=== PATIENT | male | born 1965 | race Caucasian/White ===

== ENCOUNTER 2020-05-31 15:03 | Inpatient (IN) ==
[2020-05-31] MEDS ORDERED: SODIUM CHLORIDE 0.9% 1,000 ML IV STA ×2 (15:29→15:50)
[2020-05-31] MEDS ORDERED: ROCURONIUM 100 MG/10 ML VIAL IV STA (15:36)
[2020-05-31] MEDS ORDERED: ETOMIDATE 20 MG/10 ML VIAL IV ONE (15:36)
[2020-05-31] MEDS ORDERED: ROCURONIUM 100 MG/10 ML VIAL IV ONE (15:41)
[2020-05-31] MEDS ORDERED: PIPERACILLIN/TAZOBACTAM 3,375 MG in SODIUM CHLORIDE 0.9% 100 ML IV STA (15:49)
[2020-05-31] MEDS ORDERED: DEXAMETHASONE 4 MG/1 ML VIAL IV STA (15:50)
[2020-05-31 15:57] LABS: Barbiturates Screen,Urine Negative (Negative); Benzodiazepines Screen,Urine Positive (Negative); Cannabinoid Screen,Urine Negative (Negative); Opiate Screen,Urine Negative (Negative); Phencyclidine Screen,Urine Negative (Negative)
[2020-05-31 16:07] LABS: Basophils # 0.1 10*3/uL (0.0-0.2); Basophils % 0.4 % (0.0-0.8); Eosinophils % 0.1 % (0.00-10.9); Hematocrit 29.5 VOL% (42.0-52.0); Hemoglobin 9.3 GM/DL (14.0-18.0); Immature Granulocytes % 2.9 %; Immature Granulocytes Absolute 0.72 #; Lymphocytes # 2.2 10*3/uL (1.4-4.0); Lymphocytes % 8.9 % (21.2-54.2); Mean Corpuscular HGB Conc 31.5 GM/DL (32-36); Mean Corpuscular Volume 81.9 FL (87-102); Mean Platelet Volume 9.9 FL (9.6-12.0); Monocytes % 6.1 % (1.7-12.7); Neutrophils % 81.6 % (38.7-73.9); Platelet Count 97 T/CUMM (130-400); Red Cell Distribution Width 20.9 % (9.3-17.3); White Blood Count 24.9 T/CUMM (4-12)
[2020-05-31 16:23] LABS: INR 3.9
[2020-05-31 16:23] LABS: ABG HCO3 14.2 MMOL/L (20-26); ABG Oxygen Saturation 99.8 % (95-100); ABG PCO2 34.3 MM HG (35-48); ABG PH 7.216 (7.35-7.45); ABG TCO2 13.1 MMOL/L (23-27)
[2020-05-31 16:24] LABS: PT Patient Result 38.7 SECS (9.8-11.9); Partial Thromboplastin Time 52.2 SECS (23.9-33.8)
[2020-05-31 16:28] LABS: Acetaminophen < 2.0 UG/ML (10-30); Salicylate < 2.8 MG/DL (2.8-20)
[2020-05-31 16:30] LABS: Alanine Aminotransferase 42 U/L (16-61); Albumin 1.1 G/DL (3.4-5.0); Alkaline Phosphatase 135 U/L (45-117); Aspartate Amino Transferase 207 U/L (0-37); Blood Urea Nitrogen 89 MG/DL (7-18); Calcium 7.6 MG/DL (8.5-10.1); Estimated Glom Filtration Rate 26 ML/MIN; Glucose 143 MG/DL (74-106); Osmolality,Calculated 296.2 MOS/KG (273-304); Thyroid Stimulating Hormone 0.195 uIU/ml (0.358-3.74); Total Protein 5.1 G/DL (6.4-8.3)
[2020-05-31] MEDS ORDERED: NOREPINEPHRINE 4 MG/4 ML VIAL IV ONE (16:34)
[2020-05-31] MEDS: NOREPINEPHRINE 8 MG in SODIUM CHLORIDE 0.9% 242 ML IV PRN (16:42)
[2020-05-31 17:19] LABS: Bacteria,Urine Moderate /HPF (Few); Bilirubin,Urine Negative (Negative); Blood, Urine Large mg/dL (Negative); Glucose,Urine (UA) 150 mg/dL (Negative); Ketones,Urine Negative (Negative); Nitrite,Urine Negative (Negative); Protein,Urine 30 MG/DL; RBC,Urine 8 /HPF (0-4); Squamous Epithelial Cell,Urine Occasional /HPF (0-10); Urine Appearance CLOUDY (Clear); Urine Color Amber (Yellow); Urine Specific Gravity 1.013 (1.001-1.035); WBC,Urine 46 /HPF (0-6)
[2020-05-31] MEDS ORDERED: ENOXAPARIN 30 MG/0.3 ML SYRINGE SUBCUT STA (17:49)
[2020-05-31] MEDS ORDERED: ENOXAPARIN 80 MG/0.8 ML SYRINGE SUBCUT ONE (17:55)
[2020-05-31 18:07] LABS: Band Neutrophils 10 % (0-10); Lymphocytes 4 % (20-55); Metamyelocytes 1 %; Nucleated Red Blood Cells 1 (0-5); Platelet Estimate Decreased; Segmented Neutrophils 82 % (50-85); Total Cells Counted 100
[2020-05-31 18:08] LABS: Toxic Granulation 1+
[2020-05-31] MEDS ORDERED: DIGOXIN 0.5 MG/2 ML AMP IV ONE ×2 (22:20→23:20)
[2020-05-31] MEDS ORDERED: ALBUTEROL 2.5 MG/3 ML NEB RESP TX PRN (22:23)
[2020-05-31] MEDS ORDERED: MIDAZOLAM 100 MG in SODIUM CHLORIDE 0.9% 80 ML IV PRN (22:23)
[2020-05-31] MEDS ORDERED: ONDANSETRON 4 MG/2 ML VIAL IV PRN (22:23)
[2020-05-31] MEDS ORDERED: MORPHINE 4 MG/1 ML VIAL IV PRN (22:23)
[2020-05-31] MEDS ORDERED: PANTOPRAZOLE 40 MG VIAL IV SCH (22:30)
[2020-05-31] MEDS ORDERED: cefTAZidime 1,000 MG in SYRINGE 1 EACH IV SCH (23:45)
[2020-06-01] MEDS: NOREPINEPHRINE 8 MG in SODIUM CHLORIDE 0.9% 242 ML IV PRN ×3 (01:51→11:05)
[2020-06-01] MEDS ORDERED: AMIODARONE INJ 150 MG in DEXTROSE 5% 100 ML IV ONE (01:53)
[2020-06-01] MEDS ORDERED: AMIODARONE INJ 450 MG in DEXTROSE 5% 241 ML IV SCH ×2 (02:00→08:00)
[2020-06-01 03:25] LABS: ABG Base Excess -14.2 MMOL/L (-2.5-2.5); ABG HCO3 13.5 MMOL/L (20-26); ABG PCO2 28.9 MM HG (35-48); ABG PH 7.234 (7.35-7.45); ABG TCO2 11.4 MMOL/L (23-27)
[2020-06-01 03:52] LABS: Hematocrit 31.8 VOL% (42.0-52.0); Hemoglobin 9.6 GM/DL (14.0-18.0); Immature Granulocytes % 3.6 %; Immature Granulocytes Absolute 1.51 #; Lymphocytes # 2.4 10*3/uL (1.4-4.0); Lymphocytes % 5.6 % (21.2-54.2); Mean Corpuscular HGB Conc 30.2 GM/DL (32-36); Mean Corpuscular Volume 84.8 FL (87-102); Mean Platelet Volume 10.5 FL (9.6-12.0); Monocytes % 4.5 % (1.7-12.7); NRBC # 0.55 10*3/uL; Neutrophils % 86.3 % (38.7-73.9); Red Blood Count 3.75 MC/CUMM (3.8-5.5); Red Cell Distribution Width 21.2 % (9.3-17.3)
[2020-06-01 04:02] LABS: Platelet Count 122 T/CUMM (130-400)
[2020-06-01 04:04] LABS: White Blood Count 42.2 T/CUMM (4-12)
[2020-06-01 04:11] LABS: Band Neutrophils 4 % (0-10); Hypochromasia Slight; Lymphocytes 7 % (20-55); Nucleated Red Blood Cells 1 (0-5); Platelet Estimate Adequate; Segmented Neutrophils 87 % (50-85); Total Cells Counted 100
[2020-06-01 04:12] LABS: Albumin 1.1 G/DL (3.4-5.0); Calcium 7.3 MG/DL (8.5-10.1); Macrocytosis Slight; Osmolality,Calculated 291.2 MOS/KG (273-304); Polychromasia Slight; Total Protein 5.7 G/DL (6.4-8.3)
[2020-06-01] MEDS: DEXTROSE 50% 25 GM/50 ML VIAL IV PRN ×5 (04:26→13:05)
[2020-06-01] MEDS ORDERED: PHENYLEPHRINE INJ 160 MG in SODIUM CHLORIDE 0.9% 234 ML IV PRN (07:20)
[2020-06-01] MEDS ORDERED: SODIUM BICARBONATE 50 MEQ/50 ML VIAL IV ONE (07:30)
[2020-06-01] MEDS ORDERED: SODIUM CHLORIDE 0.9% 1,000 ML IV ONE (07:30)
[2020-06-01] MEDS: HYDROCORTISONE 100 MG VIAL IV SCH ×2 (07:35→14:00)
[2020-06-01] MEDS ORDERED: VANCOMYCIN INJ 1,250 MG in SODIUM CHLORIDE 0.9% 250 ML IV ONE (08:30)
[2020-06-01] MEDS ORDERED: SODIUM BICARB INJ 150 MEQ in DEXTROSE 5% 850 ML IV SCH (08:30)
[2020-06-01] MEDS ORDERED: ATROPINE 1 MG/10 ML SYRINGE ONE (09:55)
[2020-06-01] MEDS ORDERED: ATROPINE 1 MG/10 ML SYRINGE IV ONE ×2 (10:13→13:05)
[2020-06-01 10:36] LABS: PT Patient Result 57.6 SECS (9.8-11.9)
[2020-06-01 10:39] LABS: INR 5.9
[2020-06-01] MEDS ORDERED: VANCOMYCIN INJ 1,250 MG in SODIUM CHLORIDE 0.9% 250 ML IV PRN (10:41)
[2020-06-01 10:47] LABS: Alanine Aminotransferase 956 U/L (16-61); Alkaline Phosphatase 227 U/L (45-117); Aspartate Amino Transferase 6496 U/L (0-37); Blood Urea Nitrogen 88 MG/DL (7-18); CKMB % 2.5 %; Calcium 6.6 MG/DL (8.5-10.1); Estimated Glom Filtration Rate 20 ML/MIN; Glucose 120 MG/DL (74-106); Osmolality,Calculated 293.4 MOS/KG (273-304)
[2020-06-01 15:36] VITALS: BP 102/21
[2020-06-01] MEDS ORDERED: ENOXAPARIN 80 MG/0.8 ML SYRINGE SUBCUT SCH (17:00)
== END 2020-06-01 13:43 | disposition expired | DRG 64 ==
LOC: EDBD → EDUNIT# → N.ED 15:03 → N.EDINP 19:47 → N.ICU 20:18
PROVIDERS: ADMIT Family Medicine; ATTEND Family Medicine